=== PATIENT | female | born 1985 | race Caucasian/White ===

== ENCOUNTER 2018-01-12 01:01 | Emergency (ER) | payer SELFPAY ==
[~2018-01-12] VITALS: Ht 157.5 cm; Wt 97.8 kg
[~2018-01-12 01:01] MED LIST: ACETTAB3 OR; AMOXICILLIN500 MG PO; ANTIVERT12.5 MG OR; ATENOLOL25 MG PO; ATUSS DS OR; BACTRIM DS1 TAB PO; CIPRO500 MG PO; CIPROFLOXACN500 MG PO; CLARITIN10 M1 PO; CLEOCIN VAG2 % VA; CLEOCIN150 M1 PO; CLONAZEPAM1 M1 PO; CYSTEX PO; DIFLUCAN150 MG OR; DIFLUCAN150 MG PO; E.E.S. 400400 MG OR; FLAGYL500 MG OR; FLEXERIL PO; KETOROLAC60 MG/2 ML IM; KLONOPIN0.5 MG PO; KLONOPIN1 MG OR; KLONOPIN1 MG PO; LAMOTRIGINE ODT50 MG PO; LEVOTHROID88 MCG PO; LEVOTHYROXIN100 MCG PO; LEVOTHYROXIN125 MCG PO; LEVOTHYROXIN75 MC1 PO; LORTAB5 PO; MACROBID100 MG OR; MACROBID100 MG PO; MACRODANTIN100 MG PO; MACRODANTIN50 MG PO; MAXZIDE PO; MEDDOSEPAK PO; METHYLPRED4 MG PO; METRONIDAZOL500 MG PO; MOTRIN800 MG PO; MULTIVITAMIN OR; MYCOSTATIN100000 MG EX; NAPROSYN500 MG PO; NATURE-THROI81.25 MG PO; NECON1 TA1 PO; NEURONTIN300 MG PO; NITROFURANTN100 MG PO; NO HOME MEDS; PARAGARD IU; PAXIL20 MG PO; PHENERGAN12.5 MG; PROAIR HFA IN; PROVENTIL IN; PYRIDIUM100 MG OR; PYRIDIUM200 MG PO; ROBITUSS11 OR; SYNTHROID50 MCG; TRAMADOL HCL50 MG PO; TRI-SPRINTEC PO; ULTRAM50 M1 PO; ULTRAM50 MG OR; ULTRAM50 MG PO; WELLBUTRI1 PO; WELLBUTRIN SR150 M1 PO; WELLBUTRIN SR150 MG PO; ZITHROMAX250 MG OR; ZITHROMAX250 MG PO; ZOFRAN ODT4 MG OR; ZOFRAN ODT4 MG PO; ZOFRAN ODT4 MG SL; ZPAK PO; ZYRTEC10 M2 PO; [UNRECOGNIZED DRUG - OTHER] PO
[2018-01-12] MEDS ORDERED: PROZAC40 MG PO (01:18)
[2018-01-12] MEDS ORDERED: KLONOPIN0.5 MG PO (01:18)
[2018-01-12] MEDS ORDERED: NEURONTIN600 MG PO (01:19)
[2018-01-12] MEDS ORDERED: TOPAMAX25 MG PO (01:19)
[2018-01-12 01:41] LABS: HEMATOCRIT 39.2 % (37.0-47.0); IMMATURE GRANULOCYTES 1.2 % (0.0-1.0); MEAN CORPUSCULAR HGB 32.3 pG CALC (26.0-32.0); MEAN CORPUSCULAR HGB CONC 33.2 g/L CALC (32.0-36.0); NEUT# 12.71 thou/uL (2.00-7.15); RED BLOOD COUNT 4.03 mill/uL (4.20-5.60); RED CELL DISTRI WIDTH 13.9 % (11.5-15.5)
[2018-01-12 01:45] LABS: MEAN CELL VOLUME 97.3 fL CALC (80.0-100.0)
--- NOTE | 2018-01-12 01:52 | NUR ---
BREATHING TREATMENT GIVEN BACK TO BACK VIA MOUTH PEICE. BREATHING TECH. FOR GOOD DEPOSITION TO THE LUNGS
[2018-01-12 01:53] LABS: ALKALINE PHOSPHATASE 103 u/l (38-126); BILIRUBIN, TOTAL 0.3 mg/dL (0.0-1.4); BUN 18 mg/dL (7-17); BUN/CREATININE RATIO 19 (12-20 (CALC)); CARBON DIOXIDE 24 mmol/l (22-30); CREATININE 0.9 mg/dL (0.5-1.0); GFR > 60 ML/MIN (>=60 (CALC)); GFR FOR AFR.AMER. > 60 ML/MIN (>=60 (CALC)); POTASSIUM 3.6 mmol/l (3.5-5.1); SGOT/AST 19 u/l (14-36); SGPT/ALT 40 u/l (9-52); SODIUM 139 mmol/l (137-146); TOTAL PROTEIN 6.4 g/dL (6.3-8.2)
[2018-01-12 01:58] LABS: ALBUMIN 3.4 g/dL (3.2-5.0); ANION GAP 11 (6-22 (CALC)); CHLORIDE 108 mmol/l (95-108)
[2018-01-12] MEDS ORDERED: BIAXIN500 MG PO (03:32)
[2018-01-12] MEDS ORDERED: STERAPRED DS10 MG PO (03:32)
[2018-01-12] MEDS ORDERED: ADVAIR DISK1 INH (03:32)
[2018-01-12] MEDS ORDERED: VOLTAREN - GENE75 MG PO (03:32)
[2018-01-12 03:36] VITALS: BP 142/73
== END 2018-01-12 03:45 | disposition home or self-care (01) | DRG 203 ==
LOC: ED 01:01
PROVIDERS: Family Medicine
DX: J45.901 Unspecified asthma with (acute) exacerbation (principal); F17.210 Nicotine dependence, cigarettes, uncomplicated

== ENCOUNTER 2019-03-08 09:25 | Emergency (ER) | payer SELFPAY ==
[~2019-03-08] VITALS: Ht 157.5 cm; Wt 100.0 kg
[~2019-03-08 09:25] MED LIST changes: +ADVAIR DISK1 INH; +BIAXIN500 MG PO; +NEURONTIN600 MG PO; +PROZAC40 MG PO; +STERAPRED DS10 MG PO; +TOPAMAX25 MG PO; +VOLTAREN - GENE75 MG PO
[2019-03-08] MEDS ORDERED: TOPAMAX100 MG PO (10:24)
[2019-03-08] MEDS ORDERED: ALBUTEROL108 MCG/AC IN (10:25)
[2019-03-08] MEDS ORDERED: ALBUTEROL SUL0.083 % IN (10:25)
[2019-03-08] MEDS ORDERED: LEXAPRO20 MG PO (10:26)
[2019-03-08] MEDS ORDERED: WELLBUTRIN100 M2 PO (10:26)
[2019-03-08] MEDS ORDERED: DOXYCYC MONO100 M2 PO (10:46)
[2019-03-08] MEDS ORDERED: PREDNISONE50 MG PO (10:46)
[2019-03-08 10:54] VITALS: BP 120/77
[2019-03-08] MEDS ORDERED: CHERATUSSIN PO (16:29)
== END 2019-03-08 10:54 | disposition home or self-care (01) | DRG 203 ==
LOC: ED 09:25
DX: J45.909 Unspecified asthma, uncomplicated (principal)

== ENCOUNTER 2019-04-10 00:01 | Emergency (ER) | payer SELFPAY ==
[~2019-04-10] VITALS: Ht 157.5 cm; Wt 95.0 kg
[~2019-04-10 00:01] MED LIST changes: +ALBUTEROL SUL0.083 % IN; +ALBUTEROL108 MCG/AC IN; +CHERATUSSIN PO; +DOXYCYC MONO100 M2 PO; +LEXAPRO20 MG PO; +PREDNISONE50 MG PO; +TOPAMAX100 MG PO; +WELLBUTRIN100 M2 PO
[2019-04-10] MEDS ORDERED: LORTAB 1010 MG PO (00:19)
[2019-04-10 00:45] VITALS: BP 108/78
== END 2019-04-10 00:45 | disposition home or self-care (01) | DRG 950 ==
LOC: ED 00:01
DX: T22.011D Burn of unspecified degree of right forearm, subsequent encounter (principal); L08.9 Local infection of the skin and subcutaneous tissue, unspecified; X10.2XXD Contact with fats and cooking oils, subsequent encounter

== ENCOUNTER 2019-04-20 01:57 | Emergency (ER) | payer SELFPAY ==
[~2019-04-20] VITALS: Ht 157.5 cm; Wt 95.4 kg
[~2019-04-20 01:57] MED LIST changes: +LORTAB 1010 MG PO
[2019-04-20] MEDS ORDERED: LEXAPRO10 MG PO (02:12)
[2019-04-20] MEDS ORDERED: NEURONTIN300 MG PO (02:12)
[2019-04-20] MEDS ORDERED: WELLBUTRIN SR150 MG PO (02:12)
[2019-04-20] MEDS ORDERED: KLONOPIN0.5 MG PO (02:12)
[2019-04-20] MEDS ORDERED: TOPAMAX100 MG PO (02:13)
[2019-04-20 02:15] VITALS: BP 109/73
== END 2019-04-20 02:27 | disposition home or self-care (01) | DRG 950 ==
LOC: ED 01:57
DX: T23.271D Burn of second degree of right wrist, subsequent encounter (principal); X08.8XXD Exposure to other specified smoke, fire and flames, subsequent encounter; F17.210 Nicotine dependence, cigarettes, uncomplicated

== ENCOUNTER 2019-05-16 21:43 | Emergency (ER) | payer SELFPAY ==
[~2019-05-16] VITALS: Ht 157.5 cm; Wt 97.6 kg
[~2019-05-16 21:43] MED LIST changes: +LEXAPRO10 MG PO
[2019-05-16 22:56] LABS: URINE BILIRUBIN - DIPSTICK NEGATIVE (NEGATIVE); URINE BLOOD DIPSTICK NEGATIVE (NEGATIVE); URINE COLOR YELLOW; URINE GLUCOSE - DIPSTICK NEGATIVE (NEGATIVE); URINE KETONE NEGATIVE (NEGATIVE); URINE LEUK ESTERASE NEGATIVE (NEGATIVE); URINE NITRITE - DIPSTICK NEGATIVE (Negative); URINE PROTEIN - DIPSTICK NEGATIVE (NEG-TRACE); URINE SPECIFIC GRAVITY 1.025; URINE UROBILINOGEN - DIPSTICK 0.2 E.U./dL (0.2)
[2019-05-16 23:28] LABS: HEMATOCRIT 41.9 % (37.0-47.0); HEMOGLOBIN 13.4 g/dl (12.0-16.0); IMMATURE GRANULOCYTES 0.3 % (0.0-5.0); MEAN CELL VOLUME 96.1 fL CALC (80.0-100.0); MEAN CORPUSCULAR HGB 30.7 pG CALC (26.0-32.0); NEUT# 5.84 thou/uL (2.00-7.15); RED BLOOD COUNT 4.36 mill/uL (4.20-5.60); RED CELL DISTRI WIDTH 13.9 % (11.5-15.5)
[2019-05-16 23:43] LABS: ALKALINE PHOSPHATASE 110 u/l (38-126); ANION GAP 13 (6-22 (CALC)); BILIRUBIN, TOTAL 0.3 mg/dL (0.0-1.4); BUN 11 mg/dL (7-17); BUN/CREATININE RATIO 10 (12-20 (CALC)); CARBON DIOXIDE 23 mmol/l (22-30); CHLORIDE 108 mmol/l (95-108); GFR > 60 ML/MIN (>=60 (CALC)); GFR FOR AFR.AMER. > 60 ML/MIN (>=60 (CALC)); LIPASE 280 u/l (23-300); POTASSIUM 4.3 mmol/l (3.5-5.1); SGOT/AST 26 u/l (14-36); SODIUM 139 mmol/l (137-146); TOTAL PROTEIN 7.1 g/dL (6.3-8.2)
[2019-05-16 23:44] LABS: ALBUMIN 4.1 g/dL (3.2-5.0)
[2019-05-17] MEDS ORDERED: TRAMADOL HYDROC50 MG PO (01:30)
[2019-05-17 02:02] VITALS: BP 124/72
== END 2019-05-17 02:15 | disposition home or self-care (01) | DRG 761 ==
LOC: ED 21:43
DX: N83.201 Unspecified ovarian cyst, right side (principal)
CPT/HCPCS: Q9967

== ENCOUNTER 2019-07-18 11:45 | Emergency (ER) | payer SELFPAY ==
[~2019-07-18] VITALS: Ht 157.5 cm; Wt 100.0 kg
[~2019-07-18 11:45] MED LIST changes: +TRAMADOL HYDROC50 MG PO
[2019-07-18] MEDS ORDERED: DULOXETINE HYDR30 MG PO (13:36)
[2019-07-18] MEDS ORDERED: GABAPENTIN800 MG PO (13:36)
[2019-07-18] MEDS ORDERED: METHOCARBAM750 MG PO (13:37)
[2019-07-18] MEDS ORDERED: LEVOTHYROXIN50 MCG PO (13:37)
[2019-07-18] MEDS ORDERED: PANTOPRAZOLE SO40 M1 PO (13:38)
[2019-07-18] MEDS ORDERED: PRAVASTATIN20 MG PO (13:38)
[2019-07-18 13:55] VITALS: BP 130/84
== END 2019-07-18 13:55 | disposition home or self-care (01) | DRG 153 ==
LOC: ED 11:45
DX: J06.9 Acute upper respiratory infection, unspecified (principal); F17.210 Nicotine dependence, cigarettes, uncomplicated

== ENCOUNTER 2019-09-24 | Emergency (ER) | payer SELFPAY ==
[~2019-09-24] MED LIST changes: +DULOXETINE HYDR30 MG PO; +GABAPENTIN800 MG PO; +LEVOTHYROXIN50 MCG PO; +METHOCARBAM750 MG PO; +PANTOPRAZOLE SO40 M1 PO; +PRAVASTATIN20 MG PO
[2019-09-24 23:45] LABS: URINE BILIRUBIN - DIPSTICK NEGATIVE (NEGATIVE); URINE BLOOD DIPSTICK TRACE-INTACT (NEGATIVE); URINE COLOR YELLOW; URINE GLUCOSE - DIPSTICK NEGATIVE (NEGATIVE); URINE KETONE NEGATIVE (NEGATIVE); URINE PROTEIN - DIPSTICK NEGATIVE (NEG-TRACE); URINE UROBILINOGEN - DIPSTICK 0.2 E.U./dL (0.2)
[2019-09-24 23:46] LABS: URINE BACTERIA MANY hpf; URINE EPITHELIAL CELLS MODERATE EPI/hpf (0-FEW); URINE LEUK ESTERASE MODERATE (NEGATIVE); URINE NITRITE - DIPSTICK POSITIVE (Negative); URINE RBC 0-2 RBC/hpf (0-5); URINE WBC 20-50 WBC/hpf (0-5)
[2019-09-24] MEDS ORDERED: BACTRIM DS1 TAB PO (23:58)
== END 2019-09-25 00:30 | disposition home or self-care (01) | DRG 690 ==
DX: N39.0 Urinary tract infection, site not specified (principal); F17.210 Nicotine dependence, cigarettes, uncomplicated

== ENCOUNTER 2020-01-22 14:21 | Emergency (ER) | payer OTHER ==
[~2020-01-22] VITALS: Ht 157.5 cm; Wt 85.0 kg
[2020-01-22 15:12] LABS: URINE BILIRUBIN - DIPSTICK NEGATIVE (NEGATIVE); URINE BLOOD DIPSTICK NEGATIVE (NEGATIVE); URINE CLARITY HAZY; URINE COLOR YELLOW; URINE GLUCOSE - DIPSTICK NEGATIVE (NEGATIVE); URINE KETONE NEGATIVE (NEGATIVE); URINE LEUK ESTERASE NEGATIVE (Negative); URINE NITRITE - DIPSTICK NEGATIVE (Negative); URINE PH 7.5 (4.5-8.0); URINE PROTEIN - DIPSTICK 100 mg/dL (NEG-TRACE); URINE SPECIFIC GRAVITY 1.015; URINE UROBILINOGEN - DIPSTICK 0.2 E.U./dL (0.2)
[2020-01-22 15:19] LABS: URINE SQUAMOUS EPITHELIAL CELL MODERATE EPI/hpf (0-FEW)
[2020-01-22 17:07] VITALS: BP 148/77
== END 2020-01-22 16:55 | disposition home or self-care (01) | DRG 833 ==
LOC: ED 14:21
DX: O9A.211 Injury, poisoning and certain other consequences of external causes complicating pregnancy, first trimester (principal); S60.211A Contusion of right wrist, initial encounter; O99.331 Smoking (tobacco) complicating pregnancy, first trimester; F17.200 Nicotine dependence, unspecified, uncomplicated; Y08.09XA Assault by strike by other specified type of sport equipment, initial encounter; Z20.2 Contact with and (suspected) exposure to infections with a predominantly sexual mode of transmission; Z3A.01 Less than 8 weeks gestation of pregnancy

== ENCOUNTER 2020-04-01 17:31 | Emergency (ER) | payer OTHER ==
[~2020-04-01] VITALS: Ht 157.5 cm; Wt 82.6 kg
[2020-04-01 18:07] VITALS: BP 125/83
== END 2020-04-01 18:28 | disposition home or self-care (01) ==
LOC: ED 17:31
DX: O36.8120 Decreased fetal movements, second trimester, not applicable or unspecified (principal); O99.332 Smoking (tobacco) complicating pregnancy, second trimester; F17.200 Nicotine dependence, unspecified, uncomplicated; O99.512 Diseases of the respiratory system complicating pregnancy, second trimester; J45.909 Unspecified asthma, uncomplicated; Z3A.18 18 weeks gestation of pregnancy

== ENCOUNTER 2020-05-02 14:33 | Emergency (ER) | payer OTHER ==
[~2020-05-02] VITALS: Ht 157.5 cm; Wt 82.0 kg
[2020-05-02] MEDS ORDERED: AMOXICILLIN500 MG PO (14:54)
[2020-05-02] MEDS ORDERED: VISTARIL 50MG C50 M1 PO (14:54)
[2020-05-02] MEDS ORDERED: XANAX0.25 MG PO (14:54)
[2020-05-02 15:09] VITALS: BP 139/87
== END 2020-05-02 15:09 | disposition home or self-care (01) ==
LOC: ED 14:33
DX: O99.619 Diseases of the digestive system complicating pregnancy, unspecified trimester (principal); K04.7 Periapical abscess without sinus; K02.9 Dental caries, unspecified; O99.340 Other mental disorders complicating pregnancy, unspecified trimester; F41.8 Other specified anxiety disorders; O99.519 Diseases of the respiratory system complicating pregnancy, unspecified trimester; J45.909 Unspecified asthma, uncomplicated; O99.330 Smoking (tobacco) complicating pregnancy, unspecified trimester; F17.200 Nicotine dependence, unspecified, uncomplicated; Z3A.00 Weeks of gestation of pregnancy not specified

== ENCOUNTER 2021-01-17 23:34 | Emergency (ER) | payer OTHER ==
[~2021-01-17] VITALS: Ht 157.5 cm; Wt 100.0 kg
[~2021-01-17 23:34] MED LIST changes: +VISTARIL 50MG C50 M1 PO; +XANAX0.25 MG PO
[2021-01-18] MEDS ORDERED: PERCOCET 5/325M1 TAB PO (01:41)
[2021-01-18] MEDS ORDERED: AMOXICILLIN500 MG PO (01:41)
[2021-01-18 02:47] VITALS: BP 157/86
[2021-01-18] MEDS ORDERED: FAMOTIDINE20 M1 PO (02:49)
[2021-01-18] MEDS ORDERED: PRENATAL1 TA1 PO (02:50)
== END 2021-01-18 03:00 | disposition home or self-care (01) ==
LOC: ED 23:34
DX: O98.812 Other maternal infectious and parasitic diseases complicating pregnancy, second trimester (principal); H66.92 Otitis media, unspecified, left ear; O99.612 Diseases of the digestive system complicating pregnancy, second trimester; K02.9 Dental caries, unspecified; O99.512 Diseases of the respiratory system complicating pregnancy, second trimester; J45.909 Unspecified asthma, uncomplicated; O99.342 Other mental disorders complicating pregnancy, second trimester; F41.9 Anxiety disorder, unspecified; F32.9 Major depressive disorder, single episode, unspecified; O99.332 Smoking (tobacco) complicating pregnancy, second trimester; F17.210 Nicotine dependence, cigarettes, uncomplicated; Z3A.22 22 weeks gestation of pregnancy

== ENCOUNTER 2021-01-25 04:42 | Emergency (ER) | payer OTHER ==
[~2021-01-25] VITALS: Ht 157.5 cm; Wt 100.0 kg
[~2021-01-25 04:42] MED LIST changes: +FAMOTIDINE20 M1 PO; +PERCOCET 5/325M1 TAB PO; +PRENATAL1 TA1 PO
[2021-01-25 05:15] LABS: IMMATURE GRANULOCYTES 0.5 % (0.0-5.0); MEAN CELL VOLUME 96.7 fL CALC (80.0-100.0); MEAN CORPUSCULAR HGB 31.4 pG CALC (26.0-32.0); MEAN CORPUSCULAR HGB CONC 32.5 g/dL CAL (32.0-36.0); NEUT# 5.73 thou/uL (2.00-7.15); RED BLOOD COUNT 3.34 mill/uL (4.20-5.60); RED CELL DISTRI WIDTH 13.9 % (11.5-15.5)
[2021-01-25 05:18] LABS: HEMATOCRIT 32.3 % (37.0-47.0); HEMOGLOBIN 10.5 g/dl (12.0-16.0)
[2021-01-25] MEDS ORDERED: ADULT ASPIRIN R81 MG PO (05:20)
[2021-01-25] MEDS ORDERED: ATENOLOL25 MG PO (05:20)
[2021-01-25 05:29] LABS: ALKALINE PHOSPHATASE 68 u/l (38-126); ANION GAP 10 (6-22 (CALC)); BUN 16 mg/dL (7-17); BUN/CREATININE RATIO 22 (12-20 (CALC)); CARBON DIOXIDE 22 mmol/l (22-30); CHLORIDE 106 mmol/l (95-108); CREATININE 0.7 mg/dL (0.5-1.0); GFR > 60 ML/MIN (>=60 (CALC)); GFR FOR AFR.AMER. > 60 ML/MIN (>=60 (CALC)); POTASSIUM 3.7 mmol/l (3.5-5.1); SGOT/AST 18 u/l (14-36); SODIUM 134 mmol/l (137-146); TOTAL PROTEIN 5.8 g/dL (6.3-8.2)
[2021-01-25 05:31] LABS: ALBUMIN 2.9 g/dL (3.2-5.0)
[2021-01-25 06:11] LABS: BETA-HCG, QUANT(RESULT NUMBER) 33223 mIU/mL
[2021-01-25 06:18] LABS: URINE BILIRUBIN - DIPSTICK NEGATIVE (NEGATIVE); URINE BLOOD DIPSTICK NEGATIVE (NEGATIVE); URINE COLOR YELLOW; URINE GLUCOSE - DIPSTICK NEGATIVE (NEGATIVE); URINE KETONE NEGATIVE (NEGATIVE); URINE LEUK ESTERASE NEGATIVE (NEGATIVE); URINE PROTEIN - DIPSTICK NEGATIVE (NEG-TRACE); URINE SPECIFIC GRAVITY <=1.005; URINE UROBILINOGEN - DIPSTICK 0.2 E.U./dL (0.2)
[2021-01-25 06:22] LABS: URINE NITRITE - DIPSTICK NEGATIVE (Negative)
[2021-01-25 06:58] VITALS: BP 124/66
== END 2021-01-25 07:02 | disposition home or self-care (01) ==
LOC: ED 04:42
PROVIDERS: Family Medicine
DX: O9A.212 Injury, poisoning and certain other consequences of external causes complicating pregnancy, second trimester (principal); S30.1XXA Contusion of abdominal wall, initial encounter; O99.512 Diseases of the respiratory system complicating pregnancy, second trimester; J45.909 Unspecified asthma, uncomplicated; O99.342 Other mental disorders complicating pregnancy, second trimester; F41.9 Anxiety disorder, unspecified; F32.9 Major depressive disorder, single episode, unspecified; O99.332 Smoking (tobacco) complicating pregnancy, second trimester; F17.200 Nicotine dependence, unspecified, uncomplicated; V48.6XXA Car passenger injured in noncollision transport accident in traffic accident, initial encounter; Z3A.23 23 weeks gestation of pregnancy

== ENCOUNTER 2022-03-15 22:14 | Emergency (ER) | payer OTHER ==
[~2022-03-15] VITALS: Ht 157.5 cm; Wt 100.0 kg
[~2022-03-15 22:14] MED LIST changes: +ADULT ASPIRIN R81 MG PO
[2022-03-15 23:13] VITALS: BP 117/77
[2022-03-15 23:15] VITALS: BP 114/82
[2022-03-15 23:31] VITALS: BP 107/79
[2022-03-16 00:01] VITALS: BP 122/68
[2022-03-16 00:14] LABS: INTERNATIONAL NORMALIZED RATIO 2.4 RATIO (0.7-1.3); PROTHROMBIN TIME 23.4 SECONDS (9.0-12.5)
[2022-03-16 00:16] VITALS: BP 115/69
[2022-03-16] MEDS ORDERED: CLINDAMYCIN300 M1 PO (00:26)
[2022-03-16] MEDS ORDERED: DIFLUCAN150 MG PO (00:30)
[2022-03-16 00:31] VITALS: BP 110/72
[2022-03-16 00:32] VITALS: BP 110/72
== END 2022-03-16 00:40 | disposition home or self-care (01) ==
LOC: ED 22:14
PROVIDERS: Family Medicine
DX: K04.7 Periapical abscess without sinus (principal); K02.9 Dental caries, unspecified; J45.909 Unspecified asthma, uncomplicated; F41.9 Anxiety disorder, unspecified; F32.A Depression, unspecified; M79.7 Fibromyalgia; Z89.611 Acquired absence of right leg above knee; F17.200 Nicotine dependence, unspecified, uncomplicated

== ENCOUNTER 2022-03-27 18:00 | Emergency (ER) | payer OTHER ==
[~2022-03-27] VITALS: Ht 157.5 cm; Wt 100.0 kg
[~2022-03-27 18:00] MED LIST changes: +CLINDAMYCIN300 M1 PO
[2022-03-27 18:27] VITALS: BP 122/80
[2022-03-27 18:30] VITALS: BP 120/84
[2022-03-27 19:00] VITALS: BP 115/80
[2022-03-27 20:28] LABS: INTERNATIONAL NORMALIZED RATIO 3.7 RATIO (0.7-1.3); PROTHROMBIN TIME 34.6 SECONDS (9.0-12.5)
[2022-03-27] MEDS ORDERED: LORTAB 1010 MG PO (20:51)
[2022-03-27] MEDS ORDERED: AMOXICILLIN/PO500 MG PO (20:51)
[2022-03-27] MEDS ORDERED: FLOXIN OTIC0.3 % AU (20:51)
[2022-03-27 21:12] VITALS: BP 115/80
[2022-03-27] MEDS ORDERED: SYMBICORT1 AE1 IN (21:18)
== END 2022-03-27 21:36 | disposition home or self-care (01) ==
LOC: ED 18:00
PROVIDERS: Emergency Medicine
DX: H66.91 Otitis media, unspecified, right ear (principal); J03.90 Acute tonsillitis, unspecified; E11.51 Type 2 diabetes mellitus with diabetic peripheral angiopathy without gangrene; J45.909 Unspecified asthma, uncomplicated; F41.9 Anxiety disorder, unspecified; F32.A Depression, unspecified; M79.7 Fibromyalgia; F17.210 Nicotine dependence, cigarettes, uncomplicated; Z86.718 Personal history of other venous thrombosis and embolism; Z89.611 Acquired absence of right leg above knee; Z20.822 Contact with and (suspected) exposure to COVID-19

== ENCOUNTER 2022-04-14 17:54 | Emergency (ER) | payer OTHER ==
[~2022-04-14] VITALS: Ht 157.5 cm; Wt 100.0 kg
[2022-04-14] VITALS (15 sets, daily range): BP systolic 91–128; BP diastolic 53–78
[~2022-04-14 17:54] MED LIST changes: +AMOXICILLIN/PO500 MG PO; +FLOXIN OTIC0.3 % AU; +SYMBICORT1 AE1 IN
[2022-04-14] MEDS ORDERED: HYDROCO/APAP1 TA9 PO (19:55)
[2022-04-14 20:01] LABS: INTERNATIONAL NORMALIZED RATIO 1.7 RATIO (0.7-1.3); PROTHROMBIN TIME 16.7 SECONDS (9.0-12.5)
== END 2022-04-14 21:36 | disposition home or self-care (01) ==
LOC: ED 17:54
PROVIDERS: Nurse Practitioner
DX: S70.11XA Contusion of right thigh, initial encounter (principal); J45.909 Unspecified asthma, uncomplicated; F41.9 Anxiety disorder, unspecified; F32.A Depression, unspecified; F17.210 Nicotine dependence, cigarettes, uncomplicated; W18.39XA Other fall on same level, initial encounter; Z86.718 Personal history of other venous thrombosis and embolism; Z79.01 Long term (current) use of anticoagulants; Z89.611 Acquired absence of right leg above knee

== ENCOUNTER 2022-04-16 08:33 | Emergency (ER) | payer OTHER ==
[~2022-04-16] VITALS: Ht 157.5 cm; Wt 100.0 kg
[2022-04-16] VITALS (15 sets, daily range): BP systolic 127–166; BP diastolic 77–109
[~2022-04-16 08:33] MED LIST changes: +HYDROCO/APAP1 TA9 PO
[2022-04-16 09:18] LABS: HEMATOCRIT 36.8 % (37.0-47.0); HEMOGLOBIN 11.5 g/dl (12.0-16.0); IMMATURE GRANULOCYTES 0.3 % (0.0-5.0); MEAN CORPUSCULAR HGB 24.7 pG CALC (26.0-32.0); MEAN CORPUSCULAR HGB CONC 31.3 g/dL CAL (32.0-36.0); NEUT# 3.83 thou/uL (2.00-7.15); RED BLOOD COUNT 4.66 mill/uL (4.20-5.60); RED CELL DISTRI WIDTH 20.1 % (11.5-15.5)
[2022-04-16 09:31] LABS: HCG SERUM/URINE (NEG/POS) NEGATIVE (NEGATIVE)
[2022-04-16 09:36] LABS: ANION GAP 13 (6-22 (CALC)); BUN 18 mg/dL (7-17); BUN/CREATININE RATIO 16 (12-20 (CALC)); CARBON DIOXIDE 26 mmol/l (22-30); CHLORIDE 104 mmol/l (95-108); CREATININE 1.1 mg/dL (0.5-1.0); GFR FOR AFR.AMER. > 60 ML/MIN (>=60 (CALC)); GFR OTHER RACES 57 ML/MIN (>=60 (CALC)); SODIUM 139 mmol/l (137-146)
[2022-04-16 09:37] LABS: INTERNATIONAL NORMALIZED RATIO 1.6 RATIO (0.7-1.3); PROTHROMBIN TIME 15.5 SECONDS (9.0-12.5)
[2022-04-16 09:41] LABS: ALKALINE PHOSPHATASE 113 u/l (38-126); BILIRUBIN, TOTAL 0.1 mg/dL (0.0-1.4); SGOT/AST 53 u/l (14-36); TOTAL PROTEIN 7.4 g/dL (6.3-8.2)
[2022-04-16 09:49] LABS: MYOGLOBIN 91 ng/mL (0 - 62)
== END 2022-04-16 13:29 | disposition short-term general hospital (02) ==
LOC: ED 08:33
PROVIDERS: Emergency Medicine
DX: R07.9 Chest pain, unspecified (principal); R79.89 Other specified abnormal findings of blood chemistry; J45.909 Unspecified asthma, uncomplicated; F41.9 Anxiety disorder, unspecified; F32.A Depression, unspecified; F17.210 Nicotine dependence, cigarettes, uncomplicated; Z86.79 Personal history of other diseases of the circulatory system; Z89.511 Acquired absence of right leg below knee
CPT/HCPCS: J1644; J2060

== ENCOUNTER 2022-04-19 12:27 | Emergency (ER) | payer OTHER ==
[~2022-04-19] VITALS: Ht 157.5 cm; Wt 100.0 kg
[2022-04-19] VITALS (7 sets, daily range): BP systolic 110–141; BP diastolic 60–81
[2022-04-19 14:31] LABS: INTERNATIONAL NORMALIZED RATIO 1.5 RATIO (0.7-1.3); PROTHROMBIN TIME 14.8 SECONDS (9.0-12.5)
== END 2022-04-19 15:13 | disposition home or self-care (01) ==
LOC: ED 12:27
PROVIDERS: Family Medicine
DX: Z04.89 Encounter for examination and observation for other specified reasons (principal); J45.909 Unspecified asthma, uncomplicated; F41.9 Anxiety disorder, unspecified; F32.A Depression, unspecified; F17.210 Nicotine dependence, cigarettes, uncomplicated; Z86.718 Personal history of other venous thrombosis and embolism; Z79.01 Long term (current) use of anticoagulants
CPT/HCPCS: J1650

== ENCOUNTER 2022-05-01 18:30 | Emergency (ER) | payer OTHER ==
[~2022-05-01] VITALS: Ht 157.5 cm; Wt 100.0 kg
[2022-05-01 18:36] VITALS: BP 107/73
[2022-05-01] MEDS ORDERED: WARFARIN SODIUM1 MG PO (19:21)
[2022-05-01] MEDS ORDERED: GABAPENTIN600 MG PO (19:22)
[2022-05-01] MEDS ORDERED: XANAX1 MG PO (19:24)
[2022-05-01] MEDS ORDERED: BACLOFEN20 MG PO (19:24)
[2022-05-01] MEDS ORDERED: PROTONIX40 MG PO (19:25)
[2022-05-01 19:44] LABS: ALBUMIN 4.5 g/dL (3.2-5.0); ALKALINE PHOSPHATASE 132 u/l (38-126); ANION GAP 15 (6-22 (CALC)); BUN 13 mg/dL (7-17); BUN/CREATININE RATIO 14 (12-20 (CALC)); CARBON DIOXIDE 21 mmol/l (22-30); CHLORIDE 106 mmol/l (95-108); CREATININE 0.9 mg/dL (0.5-1.0); GFR FOR AFR.AMER. > 60 ML/MIN (>=60 (CALC)); GFR OTHER RACES > 60 ML/MIN (>=60 (CALC)); POTASSIUM 3.9 mmol/l (3.5-5.1); SGOT/AST 46 u/l (14-36); SODIUM 138 mmol/l (137-146); TOTAL PROTEIN 7.7 g/dL (6.3-8.2)
[2022-05-01 19:52] LABS: BILIRUBIN, TOTAL 0.2 mg/dL (0.0-1.4); HEMATOCRIT 39.4 % (37.0-47.0); HEMOGLOBIN 12.1 g/dl (12.0-16.0); IMMATURE GRANULOCYTES 0.1 % (0.0-5.0); MEAN CELL VOLUME 81.1 fL CALC (80.0-100.0); MEAN CORPUSCULAR HGB 24.9 pG CALC (26.0-32.0); MEAN CORPUSCULAR HGB CONC 30.7 g/dL CAL (32.0-36.0); NEUT# 4.23 thou/uL (2.00-7.15); RED BLOOD COUNT 4.86 mill/uL (4.20-5.60); RED CELL DISTRI WIDTH 18.8 % (11.5-15.5)
[2022-05-01 20:01] LABS: INTERNATIONAL NORMALIZED RATIO 3.2 RATIO (0.7-1.3); PROTHROMBIN TIME 30.1 SECONDS (9.0-12.5)
[2022-05-01] MEDS ORDERED: WARFARIN SODIUM5 MG PO (20:29)
[2022-05-01] MEDS ORDERED: CLINDAMYCIN300 M1 PO (20:30)
[2022-05-01 20:39] VITALS: BP 107/73
== END 2022-05-01 20:46 | disposition home or self-care (01) ==
LOC: ED 18:30
PROVIDERS: Family Medicine
DX: K04.7 Periapical abscess without sinus (principal); K02.9 Dental caries, unspecified; J45.909 Unspecified asthma, uncomplicated; I30.1 Infective pericarditis; F41.9 Anxiety disorder, unspecified; F32.A Depression, unspecified; F17.200 Nicotine dependence, unspecified, uncomplicated; Z86.718 Personal history of other venous thrombosis and embolism; Z79.01 Long term (current) use of anticoagulants

== ENCOUNTER 2022-05-08 11:43 | Emergency (ER) | payer OTHER ==
[2022-05-08] VITALS (7 sets, daily range): BP systolic 114–135; BP diastolic 70–87
[~2022-05-08] VITALS: Ht 157.5 cm; Wt 100.0 kg
[~2022-05-08 11:43] MED LIST changes: +BACLOFEN20 MG PO; +GABAPENTIN600 MG PO; +PROTONIX40 MG PO; +WARFARIN SODIUM1 MG PO; +WARFARIN SODIUM5 MG PO; +XANAX1 MG PO
[2022-05-08] MEDS ORDERED: AMOX/K CLAV875 M1 PO (12:20)
[2022-05-08 12:30] LABS: ALBUMIN 3.8 g/dL (3.2-5.0); ALKALINE PHOSPHATASE 116 u/l (38-126); ANION GAP 14 (6-22 (CALC)); BUN 9 mg/dL (7-17); BUN/CREATININE RATIO 11 (12-20 (CALC)); CARBON DIOXIDE 23 mmol/l (22-30); CHLORIDE 107 mmol/l (95-108); CREATININE 0.8 mg/dL (0.5-1.0); GFR FOR AFR.AMER. > 60 ML/MIN (>=60 (CALC)); GFR OTHER RACES > 60 ML/MIN (>=60 (CALC)); POTASSIUM 4.2 mmol/l (3.5-5.1); SGOT/AST 29 u/l (14-36); SODIUM 140 mmol/l (137-146); TOTAL PROTEIN 6.9 g/dL (6.3-8.2)
[2022-05-08 12:33] LABS: BILIRUBIN, TOTAL 0.1 mg/dL (0.0-1.4); HEMATOCRIT 38.9 % (37.0-47.0); HEMOGLOBIN 11.7 g/dl (12.0-16.0); IMMATURE GRANULOCYTES 0.1 % (0.0-5.0); MEAN CELL VOLUME 83.7 fL CALC (80.0-100.0); MEAN CORPUSCULAR HGB 25.2 pG CALC (26.0-32.0); MEAN CORPUSCULAR HGB CONC 30.1 g/dL CAL (32.0-36.0); NEUT# 4.53 thou/uL (2.00-7.15); RED BLOOD COUNT 4.65 mill/uL (4.20-5.60); RED CELL DISTRI WIDTH 19.3 % (11.5-15.5)
[2022-05-08 13:07] LABS: INTERNATIONAL NORMALIZED RATIO 4.2 RATIO (0.7-1.3); PROTHROMBIN TIME 39.2 SECONDS (9.0-12.5)
[2022-05-08] MEDS ORDERED: HYDROCO/APAP1 TA9 PO ×2 (13:16→18:08)
== END 2022-05-08 13:48 | disposition home or self-care (01) ==
LOC: ED 11:43
PROVIDERS: Family Medicine
DX: K08.89 Other specified disorders of teeth and supporting structures (principal); R60.0 Localized edema; I73.9 Peripheral vascular disease, unspecified; J45.909 Unspecified asthma, uncomplicated; F41.9 Anxiety disorder, unspecified; F32.A Depression, unspecified; F17.200 Nicotine dependence, unspecified, uncomplicated; Z86.718 Personal history of other venous thrombosis and embolism; Z79.01 Long term (current) use of anticoagulants

== ENCOUNTER 2022-05-11 15:12 | Emergency (ER) | payer OTHER ==
[~2022-05-11] VITALS: Ht 157.5 cm; Wt 100.0 kg
[2022-05-11] VITALS (8 sets, daily range): BP systolic 135–170; BP diastolic 96–110
[~2022-05-11 15:12] MED LIST changes: +AMOX/K CLAV875 M1 PO
[2022-05-11 16:00] LABS: HEMATOCRIT 38.5 % (37.0-47.0); HEMOGLOBIN 11.8 g/dl (12.0-16.0); IMMATURE GRANULOCYTES 0.4 % (0.0-5.0); MEAN CELL VOLUME 82.4 fL CALC (80.0-100.0); MEAN CORPUSCULAR HGB 25.3 pG CALC (26.0-32.0); MEAN CORPUSCULAR HGB CONC 30.6 g/dL CAL (32.0-36.0); NEUT# 4.77 thou/uL (2.00-7.15); RED BLOOD COUNT 4.67 mill/uL (4.20-5.60); RED CELL DISTRI WIDTH 19.3 % (11.5-15.5)
[2022-05-11 16:15] LABS: ALBUMIN 3.9 g/dL (3.2-5.0); ALKALINE PHOSPHATASE 118 u/l (38-126); ANION GAP 13 (6-22 (CALC)); BUN 9 mg/dL (7-17); BUN/CREATININE RATIO 11 (12-20 (CALC)); CARBON DIOXIDE 27 mmol/l (22-30); CHLORIDE 101 mmol/l (95-108); CREATININE 0.8 mg/dL (0.5-1.0); GFR FOR AFR.AMER. > 60 ML/MIN (>=60 (CALC)); GFR OTHER RACES > 60 ML/MIN (>=60 (CALC)); POTASSIUM 4.4 mmol/l (3.5-5.1); SGOT/AST 44 u/l (14-36); SODIUM 136 mmol/l (137-146)
[2022-05-11 16:25] LABS: INTERNATIONAL NORMALIZED RATIO 1.9 RATIO (0.7-1.3); PROTHROMBIN TIME 18.2 SECONDS (9.0-12.5)
[2022-05-11] MEDS ORDERED: HYDROCO/APAP1 TA9 PO (16:52)
[2022-05-11] MEDS ORDERED: MEDDOSEPAK PO (16:52)
[2022-05-11] MEDS ORDERED: CLINDAMYCIN300 M1 PO (16:52)
== END 2022-05-11 17:45 | disposition home or self-care (01) ==
LOC: ED 15:12
PROVIDERS: Nurse Practitioner
DX: G89.29 Other chronic pain (principal); K02.9 Dental caries, unspecified; K08.409 Partial loss of teeth, unspecified cause, unspecified class; S02.5XXA Fracture of tooth (traumatic), initial encounter for closed fracture; X58.XXXA Exposure to other specified factors, initial encounter; J45.909 Unspecified asthma, uncomplicated; F41.9 Anxiety disorder, unspecified; F17.200 Nicotine dependence, unspecified, uncomplicated; F32.A Depression, unspecified; Z86.718 Personal history of other venous thrombosis and embolism; Z79.01 Long term (current) use of anticoagulants

== ENCOUNTER 2022-05-22 20:35 | Emergency (ER) | payer OTHER ==
[2022-05-22] VITALS (10 sets, daily range): BP systolic 112–157; BP diastolic 58–107
[~2022-05-22] VITALS: Ht 157.5 cm; Wt 112.0 kg
[2022-05-22 21:41] LABS: HEMATOCRIT 44.2 % (37.0-47.0); HEMOGLOBIN 13.7 g/dl (12.0-16.0); IMMATURE GRANULOCYTES 0.3 % (0.0-5.0); MEAN CELL VOLUME 82.9 fL CALC (80.0-100.0); MEAN CORPUSCULAR HGB 25.7 pG CALC (26.0-32.0); NEUT# 11.58 thou/uL (2.00-7.15); RED BLOOD COUNT 5.33 mill/uL (4.20-5.60); RED CELL DISTRI WIDTH 19.1 % (11.5-15.5)
[2022-05-22 21:49] LABS: ALBUMIN 4.6 g/dL (3.2-5.0); ALKALINE PHOSPHATASE 137 u/l (38-126); AMYLASE 91 u/l (30-110); ANION GAP 17 (6-22 (CALC)); BUN 22 mg/dL (7-17); BUN/CREATININE RATIO 21 (12-20 (CALC)); CARBON DIOXIDE 22 mmol/l (22-30); CHLORIDE 105 mmol/l (95-108); GFR FOR AFR.AMER. > 60 ML/MIN (>=60 (CALC)); GFR OTHER RACES > 60 ML/MIN (>=60 (CALC)); LIPASE 189 u/l (23-300); POTASSIUM 4.1 mmol/l (3.5-5.1); SGOT/AST 35 u/l (14-36); SODIUM 140 mmol/l (137-146); TOTAL PROTEIN 7.9 g/dL (6.3-8.2)
[2022-05-22 22:00] LABS: BILIRUBIN, TOTAL 0.2 mg/dL (0.0-1.4)
[2022-05-22 22:01] LABS: MYOGLOBIN 93 ng/mL (0 - 62)
[2022-05-22 22:51] LABS: PROTHROMBIN TIME 19.1 SECONDS (9.0-12.5)
== END 2022-05-22 23:55 | disposition short-term general hospital (02) ==
LOC: ED 20:35
PROVIDERS: Emergency Medicine
DX: R07.9 Chest pain, unspecified (principal); R79.89 Other specified abnormal findings of blood chemistry; J45.909 Unspecified asthma, uncomplicated; F41.9 Anxiety disorder, unspecified; F32.A Depression, unspecified; I73.9 Peripheral vascular disease, unspecified; F17.200 Nicotine dependence, unspecified, uncomplicated; Z86.718 Personal history of other venous thrombosis and embolism; Z20.822 Contact with and (suspected) exposure to COVID-19
CPT/HCPCS: J1644; S0164

== ENCOUNTER 2022-06-03 18:30 | Emergency (ER) | payer OTHER ==
[~2022-06-03] VITALS: Ht 157.5 cm; Wt 100.0 kg
[2022-06-03 18:50] VITALS: BP 116/63
[2022-06-03 19:00] VITALS: BP 120/65
[2022-06-03 19:37] LABS: MEAN CELL VOLUME 83.7 fL CALC (80.0-100.0); MEAN CORPUSCULAR HGB 26.5 pG CALC (26.0-32.0); MEAN CORPUSCULAR HGB CONC 31.6 g/dL CAL (32.0-36.0); NEUT# 5.07 thou/uL (2.00-7.15); RED BLOOD COUNT 4.12 mill/uL (4.20-5.60)
[2022-06-03 19:38] LABS: HEMATOCRIT 34.5 % (37.0-47.0); HEMOGLOBIN 10.9 g/dl (12.0-16.0)
[2022-06-03 19:51] LABS: ALBUMIN 3.7 g/dL (3.2-5.0); ALKALINE PHOSPHATASE 113 u/l (38-126); ANION GAP 10 (6-22 (CALC)); BILIRUBIN, TOTAL 0.2 mg/dL (0.0-1.4); BUN 10 mg/dL (7-17); BUN/CREATININE RATIO 12 (12-20 (CALC)); CARBON DIOXIDE 27 mmol/l (22-30); CHLORIDE 107 mmol/l (95-108); CREATININE 0.9 mg/dL (0.5-1.0); GFR FOR AFR.AMER. > 60 ML/MIN (>=60 (CALC)); GFR OTHER RACES > 60 ML/MIN (>=60 (CALC)); POTASSIUM 3.8 mmol/l (3.5-5.1); SGOT/AST 24 u/l (14-36); SODIUM 140 mmol/l (137-146); TOTAL PROTEIN 6.7 g/dL (6.3-8.2)
[2022-06-03 19:57] LABS: INTERNATIONAL NORMALIZED RATIO 2.4 RATIO (0.7-1.3); PROTHROMBIN TIME 22.8 SECONDS (9.0-12.5)
[2022-06-03 20:00] VITALS: BP 98/57
[2022-06-03 20:05] VITALS: BP 98/57
== END 2022-06-03 20:17 | disposition home or self-care (01) ==
LOC: ED 18:30
PROVIDERS: Emergency Medicine
DX: S50.11XA Contusion of right forearm, initial encounter (principal); F41.9 Anxiety disorder, unspecified; F32.A Depression, unspecified; F17.200 Nicotine dependence, unspecified, uncomplicated; Z79.01 Long term (current) use of anticoagulants; Y84.7 Blood-sampling as the cause of abnormal reaction of the patient, or of later complication, without mention of misadventure at the time of the procedure; Z86.718 Personal history of other venous thrombosis and embolism

== ENCOUNTER 2022-06-18 05:45 | Emergency (ER) | payer OTHER ==
[~2022-06-18] VITALS: Ht 157.5 cm; Wt 103.2 kg
[2022-06-18] VITALS (10 sets, daily range): BP systolic 100–129; BP diastolic 57–92
[2022-06-18] MEDS ORDERED: METOPROLOL SUCC50 MG PO (08:09)
[2022-06-18] MEDS ORDERED: LIPITOR40 M1 PO (08:10)
[2022-06-18] MEDS ORDERED: COLCHICINE0.6 M2 PO (08:10)
[2022-06-18] MEDS ORDERED: BUPROPN HCL300 MG PO (08:11)
[2022-06-18] MEDS ORDERED: CLOPIDOGREL75 MG PO (08:11)
[2022-06-18] MEDS ORDERED: WARFARIN SODIU2.5 MG PO (08:12)
[2022-06-18] MEDS ORDERED: COZAAR25 MG PO (08:13)
[2022-06-18 08:38] LABS: INTERNATIONAL NORMALIZED RATIO 1.8 RATIO (0.7-1.3); PROTHROMBIN TIME 17.9 SECONDS (9.0-12.5)
[2022-06-18] MEDS ORDERED: OXYCODONE5 M1 PO (10:22)
== END 2022-06-18 11:20 | disposition home or self-care (01) ==
LOC: ED 05:45
PROVIDERS: Family Medicine
DX: M79.604 Pain in right leg (principal); J45.909 Unspecified asthma, uncomplicated; F41.9 Anxiety disorder, unspecified; F32.A Depression, unspecified; I25.2 Old myocardial infarction; F17.210 Nicotine dependence, cigarettes, uncomplicated; W18.39XA Other fall on same level, initial encounter; Y92.009 Unspecified place in unspecified non-institutional (private) residence as the place of occurrence of the external cause; Z89.511 Acquired absence of right leg below knee; Z79.01 Long term (current) use of anticoagulants; Z86.711 Personal history of pulmonary embolism; Z86.718 Personal history of other venous thrombosis and embolism

== ENCOUNTER 2022-06-21 02:06 | Emergency (ER) | payer OTHER ==
[~2022-06-21] VITALS: Ht 157.5 cm; Wt 103.2 kg
[2022-06-21] VITALS (22 sets, daily range): BP systolic 91–120; BP diastolic 51–79
[~2022-06-21 02:06] MED LIST changes: +BUPROPN HCL300 MG PO; +CLOPIDOGREL75 MG PO; +COLCHICINE0.6 M2 PO; +COZAAR25 MG PO; +LIPITOR40 M1 PO; +METOPROLOL SUCC50 MG PO; +OXYCODONE5 M1 PO; +WARFARIN SODIU2.5 MG PO
[2022-06-21 03:33] LABS: HEMATOCRIT 39.2 % (37.0-47.0); HEMOGLOBIN 12.3 g/dl (12.0-16.0); IMMATURE GRANULOCYTES 0.1 % (0.0-5.0); MEAN CELL VOLUME 83.2 fL CALC (80.0-100.0); MEAN CORPUSCULAR HGB 26.1 pG CALC (26.0-32.0); MEAN CORPUSCULAR HGB CONC 31.4 g/dL CAL (32.0-36.0); NEUT# 4.63 thou/uL (2.00-7.15); RED BLOOD COUNT 4.71 mill/uL (4.20-5.60)
[2022-06-21 03:58] LABS: INTERNATIONAL NORMALIZED RATIO 3.4 RATIO (0.7-1.3)
[2022-06-21 04:02] LABS: ALBUMIN 4.2 g/dL (3.2-5.0); ALKALINE PHOSPHATASE 129 u/l (38-126); ANION GAP 16 (6-22 (CALC)); BILIRUBIN, TOTAL 0.1 mg/dL (0.0-1.4); BUN 14 mg/dL (7-17); BUN/CREATININE RATIO 15 (12-20 (CALC)); CARBON DIOXIDE 23 mmol/l (22-30); CHLORIDE 106 mmol/l (95-108); CREATININE 0.9 mg/dL (0.5-1.0); GFR FOR AFR.AMER. > 60 ML/MIN (>=60 (CALC)); GFR OTHER RACES > 60 ML/MIN (>=60 (CALC)); POTASSIUM 3.7 mmol/l (3.5-5.1); SGOT/AST 26 u/l (14-36); SODIUM 142 mmol/l (137-146); TOTAL PROTEIN 6.9 g/dL (6.3-8.2)
[2022-06-21 05:30] LABS: URINE BILIRUBIN - DIPSTICK NEGATIVE (NEGATIVE); URINE BLOOD DIPSTICK NEGATIVE (NEGATIVE); URINE COLOR YELLOW; URINE GLUCOSE - DIPSTICK NEGATIVE (NEGATIVE); URINE KETONE NEGATIVE (NEGATIVE); URINE LEUK ESTERASE TRACE (NEGATIVE); URINE PROTEIN - DIPSTICK NEGATIVE (NEG-TRACE); URINE SPECIFIC GRAVITY >=1.030; URINE UROBILINOGEN - DIPSTICK 0.2 E.U./dL (0.2)
[2022-06-21 05:39] LABS: URINE NITRITE - DIPSTICK NEGATIVE (Negative)
[2022-06-21 06:07] LABS: MYOGLOBIN 36 ng/mL (0 - 62)
== END 2022-06-21 09:35 | disposition home or self-care (01) ==
LOC: ED 02:06
PROVIDERS: Emergency Medicine
DX: T87.89 Other complications of amputation stump (principal); R51.9 Headache, unspecified; T78.40XA Allergy, unspecified, initial encounter; T40.2X5A Adverse effect of other opioids, initial encounter; J45.909 Unspecified asthma, uncomplicated; F41.9 Anxiety disorder, unspecified; F32.A Depression, unspecified; M79.7 Fibromyalgia; I25.2 Old myocardial infarction; I73.9 Peripheral vascular disease, unspecified; F17.210 Nicotine dependence, cigarettes, uncomplicated; Y83.5 Amputation of limb(s) as the cause of abnormal reaction of the patient, or of later complication, without mention of misadventure at the time of the procedure; Z89.511 Acquired absence of right leg below knee; Z95.5 Presence of coronary angioplasty implant and graft; Z86.718 Personal history of other venous thrombosis and embolism; Z79.01 Long term (current) use of anticoagulants

== ENCOUNTER 2022-07-06 11:26 | Emergency (ER) | payer OTHER ==
[~2022-07-06] VITALS: Ht 157.5 cm; Wt 103.2 kg
[2022-07-06] VITALS (20 sets, daily range): BP systolic 93–116; BP diastolic 47–76
[2022-07-06 12:52] LABS: PROTHROMBIN TIME 68.1 SECONDS (9.0-12.5)
[2022-07-06 12:53] LABS: INTERNATIONAL NORMALIZED RATIO 7.4 RATIO (0.7-1.3)
[2022-07-06 14:19] LABS: HEMATOCRIT 40.2 % (37.0-47.0); HEMOGLOBIN 12.7 g/dl (12.0-16.0); IMMATURE GRANULOCYTES 0.2 % (0.0-5.0); MEAN CELL VOLUME 83.9 fL CALC (80.0-100.0); MEAN CORPUSCULAR HGB 26.5 pG CALC (26.0-32.0); MEAN CORPUSCULAR HGB CONC 31.6 g/dL CAL (32.0-36.0); RED BLOOD COUNT 4.79 mill/uL (4.20-5.60); RED CELL DISTRI WIDTH 17.4 % (11.5-15.5)
== END 2022-07-06 18:51 | disposition home or self-care (01) ==
LOC: ED 11:26
PROVIDERS: Emergency Medicine
DX: R79.1 Abnormal coagulation profile (principal); T45.515A Adverse effect of anticoagulants, initial encounter; I95.1 Orthostatic hypotension; E86.0 Dehydration; I25.10 Atherosclerotic heart disease of native coronary artery without angina pectoris; J45.909 Unspecified asthma, uncomplicated; F41.9 Anxiety disorder, unspecified; F32.A Depression, unspecified; M79.7 Fibromyalgia; I25.2 Old myocardial infarction; F17.200 Nicotine dependence, unspecified, uncomplicated; Z95.5 Presence of coronary angioplasty implant and graft; Z86.718 Personal history of other venous thrombosis and embolism; Z79.01 Long term (current) use of anticoagulants

== ENCOUNTER 2022-07-26 18:09 | Emergency (ER) | payer OTHER ==
[2022-07-26] VITALS (9 sets, daily range): BP systolic 108–130; BP diastolic 73–90
[~2022-07-26] VITALS: Ht 157.5 cm; Wt 81.0 kg
[2022-07-26 19:49] LABS: BASO% 0.5 % (0-3); EOS% 1.2 % (0-8); HEMATOCRIT 42.8 % (37.0-47.0); IMMATURE GRANULOCYTES 0.1 % (0.0-5.0); LYMPH% 22.7 % (15-41); MEAN CELL VOLUME 87.5 fL CALC (80.0-100.0); MEAN CORPUSCULAR HGB 26.6 pG CALC (26.0-32.0); MEAN CORPUSCULAR HGB CONC 30.4 g/dL CAL (32.0-36.0); MONO% 6.5 % (2-13); NEUT# 5.85 thou/uL (2.00-7.15); RED BLOOD COUNT 4.89 mill/uL (4.20-5.60); RED CELL DISTRI WIDTH 17.8 % (11.5-15.5)
[2022-07-26 20:11] LABS: ALBUMIN 4.3 g/dL (3.2-5.0); ALKALINE PHOSPHATASE 154 u/l (38-126); BUN 12 mg/dL (7-17); BUN/CREATININE RATIO 13 (12-20 (CALC)); CARBON DIOXIDE 22 mmol/l (22-30); CHLORIDE 110 mmol/l (95-108); GFR FOR AFR.AMER. > 60 ML/MIN (>=60 (CALC)); GFR OTHER RACES > 60 ML/MIN (>=60 (CALC)); MAGNESIUM 2.3 mg/dL (1.6-2.3); SGOT/AST 37 u/l (14-36); SODIUM 142 mmol/l (137-146); TOTAL PROTEIN 7.5 g/dL (6.3-8.2)
[2022-07-26 20:12] LABS: ANION GAP 15 (6-22 (CALC)); BILIRUBIN, TOTAL 0.5 mg/dL (0.0-1.4); POTASSIUM 4.9 mmol/l (3.5-5.1)
[2022-07-26 20:18] LABS: ETHYL ALCOHOL 0 mg/dl (0-30)
[2022-07-26 21:33] LABS: URINE BILIRUBIN - DIPSTICK NEGATIVE (NEGATIVE); URINE BLOOD DIPSTICK TRACE-INTACT (NEGATIVE); URINE COLOR YELLOW; URINE GLUCOSE - DIPSTICK NEGATIVE (NEGATIVE); URINE KETONE NEGATIVE (NEGATIVE); URINE LEUK ESTERASE NEGATIVE (NEGATIVE); URINE PROTEIN - DIPSTICK NEGATIVE (NEG-TRACE); URINE SPECIFIC GRAVITY >=1.030; URINE UROBILINOGEN - DIPSTICK 0.2 E.U./dL (0.2)
[2022-07-26 21:34] LABS: URINE NITRITE - DIPSTICK NEGATIVE (Negative)
== END 2022-07-26 22:14 | disposition home or self-care (01) ==
LOC: ED 18:09
PROVIDERS: Family Medicine
DX: T42.4X1A Poisoning by benzodiazepines, accidental (unintentional), initial encounter (principal); J45.909 Unspecified asthma, uncomplicated; F41.9 Anxiety disorder, unspecified; F32.A Depression, unspecified; M79.7 Fibromyalgia; I73.9 Peripheral vascular disease, unspecified; I25.2 Old myocardial infarction; F17.200 Nicotine dependence, unspecified, uncomplicated; Z86.718 Personal history of other venous thrombosis and embolism